=== PATIENT | female | born 1960 | race Caucasian/White ===

== ENCOUNTER → 2016-10-30 | Outpatient (REF) | payer BC | LOC: M SFHCWAGY 11:30 | PROVIDERS: ATTEND Nurse Practitioner Women's Health | DX: Z12.4 Encounter for screening for malignant neoplasm of cervix (principal) ==

== ENCOUNTER → 2016-10-30 | Outpatient (CLI) | payer BC ==
--- NOTE | 2016-10-30 12:13 | REPMRS ---
Patient History The patient states she had a clinical breast exam in 10/2016. Family history of prostate cancer in father at age 50 or over and breast cancer in mother under age 50. Benign cyst aspiration. Digital Woman Screen Mammo: October 30, 2016 - Exam #: [id number] Bilateral CC and MLO view(s) were taken. Technologist: Olamide Davison, Technologist Prior study comparison: March 06, 2015, digital woman screen mammo performed at [facility]. October 18, 2012, digital bilateral screening mammo, performed at [facility]. June 16, 2011, digital bilateral screening mammo, performed at [facility]. FINDINGS: There are scattered fibroglandular densities. There has been no change in the appearance of the mammogram from the prior studies. There is a mild amount of scattered fibroglandular density which is fairly symmetric. There is no interval development of dominant mass, architectural distortion, or clustered microcalcification suggestive of malignancy. ASSESSMENT: BI-RADS/ACR category 1 mammogram. Negative. Recommendation Routine screening mammogram in 1 year (for women over age 40). This mammogram was interpreted with the aid of an FDA-approved computer-aided dectection system. Electronically Signed By: Zackary Ga MD 10/30/16 2179
== END ==
LOC: M WHC 10:59
PROVIDERS: ATTEND Nurse Practitioner Women's Health
DX: Z12.31 Encounter for screening mammogram for malignant neoplasm of breast (principal)

== ENCOUNTER → 2016-11-04 | Outpatient (CLI) | payer BC ==
--- NOTE | 2016-11-04 13:40 | REP ---
Clinical: Dysmenorrhea. Technique: Transabdominal pelvic ultrasound followed by transvaginal examination for better evaluation of the endometrium and adnexa. Findings: Bladder is normal and measures 10.7 x 9.6 x 4.9 cm. Heterogeneous anteverted uterus measures 8.2 x 7.5 x 5.2 cm and appears deviated to the left miriam pelvis. The endometrial complex measures 6.2 mm thickness. There is a 5.5 cm right posterior subserosal fibroid. Bilateral ovaries are normal in appearance. Right ovary measures 2.3 x 1.0 x 2.4 cm. Left ovary measures 2.8 x 2.0 x 1.6 cm. No pelvic fluid or adnexal mass lesions. Impression: 5.5 cm posterior subserosal fibroid.
== END ==
LOC: M WHC 10:23
PROVIDERS: ATTEND Nurse Practitioner Women's Health
DX: N92.1 Excessive and frequent menstruation with irregular cycle (principal); D25.9 Leiomyoma of uterus, unspecified

== ENCOUNTER → 2017-10-28 | Outpatient (CLI) | payer BC | LOC: M WHC 10:01 | DX: Z12.31 Encounter for screening mammogram for malignant neoplasm of breast (principal); Z80.3 Family history of malignant neoplasm of breast | CPT/HCPCS: 77067 ==

== ENCOUNTER → 2017-10-28 | Outpatient (REF) | payer BC | LOC: M SFHCWAGY 10:15 | DX: Z12.4 Encounter for screening for malignant neoplasm of cervix (principal) | CPT/HCPCS: G0123 ==

== ENCOUNTER → 2018-03-04 | Outpatient (CLI) | payer BC ==
[~2018-03-04] MED LIST: PROHANCE 279.3MG/ML 15ML VIAL (A9576) As Ordered
== END ==
LOC: M RAD 11:56
DX: Z80.3 Family history of malignant neoplasm of breast (principal)

== ENCOUNTER → 2018-10-31 | Outpatient (REF) | payer BC ==
[2018-11-02 14:11] LABS: HPV HYBRID CAPTURE II Negative (Negative)
== END ==
LOC: M SFHCWAGY 10:48
PROVIDERS: ATTEND Nurse Practitioner Women's Health
DX: Z12.4 Encounter for screening for malignant neoplasm of cervix (principal)
CPT/HCPCS: 87624; G0123

== ENCOUNTER → 2018-11-08 | Outpatient (CLI) | payer BC ==
--- NOTE | 2018-11-08 13:23 | REP ---
Clinical: Abnormal liver function tests. Technique: Real time allen scale ultrasound examination using curved array transducer. Findings: There demonstrates multiple scattered cysts mostly measuring under 2 cm. However, a 4.7 x 4.7 x 3.6 cm simple appearing cyst is identified with in the posterior right lobe. No further hepatic lesions are identified by sonographic evaluation. The pancreas is limited evaluation but visualized portions appear normal. Gallbladder is unremarkable and without gallstones, wall thickening, or pericholecystic fluid. No biliary ductal dilatation is appreciated and the common bile duct measures 5.4 mm diameter. The right kidney is normal in reniform shape and echogenicity without hydronephrosis and measures 11.1 x 6.6 x 4.5 cm. Visualized portions of the abdominal aorta normal. No ascites. Impression: 1. Simple appearing hepatic cysts identified measuring up to 4.7 cm. Electronically Signed by Leonard Topete MD 11/08/2018 01:15 P
== END ==
LOC: M RAD 08:04
PROVIDERS: ATTEND Family Medicine
DX: R94.5 Abnormal results of liver function studies (principal); K76.89 Other specified diseases of liver

== ENCOUNTER → 2018-12-26 | Outpatient (REF) | payer BC | LOC: M LAB REF 19:01 | PROVIDERS: ATTEND Surgery | DX: L82.1 Other seborrheic keratosis (principal) ==

== ENCOUNTER → 2019-12-22 | Outpatient (CLI) | payer BC ==
--- NOTE | 2019-12-23 10:01 | REP ---
REASON FOR EXAM: Hearing deficit. There is slight echogenic material seen along the carotid arterial verduzco. RIGHT LEFT CCA systolic 105.8 cm/s 132.4cm/s CCA diastolic 33.7 cm/s 24.3 cm/s ICA systolic 69.2 cm/s 51.9 cm/s ICA diastolic 27.0 cm/s 19.7 cm/s ICA/CCA ratio 0.65 3.39 Analysis of the spectral waveforms shows no significant broadening. There is antegrade flow seen in both vertebral arteries. IMPRESSION: There is minimal plaque formation. According to the NASCET Consensus Criteria, there is less than 50% stenosis in both internal carotid arteries due to the minimal plaque formation/intimal thickening. Electronically Signed by Maco Luu DO 12/24/2019 08:30 A
== END ==
LOC: M RAD 12:47
PROVIDERS: ATTEND Family Medicine
DX: Z86.79 Personal history of other diseases of the circulatory system (principal)

== ENCOUNTER → 2019-12-26 | Outpatient (REF) | payer BC | LOC: M SFHCWAGY 14:56 | PROVIDERS: ATTEND Nurse Practitioner Women's Health | DX: Z12.4 Encounter for screening for malignant neoplasm of cervix (principal); N85.8 Other specified noninflammatory disorders of uterus ==

== ENCOUNTER → 2019-12-26 | Outpatient (CLI) | payer BC ==
--- NOTE | 2019-12-26 11:37 | REPMRS ---
Patient History The patient states she had a clinical breast exam in December 2019. Family history of prostate cancer at age 50 or over in father, breast cancer under age 50 and endometrial cancer under age 50 in mother. Benign cyst aspiration. No Hormone Replacement Therapy 3D TOMOSYNTHESIS WAS PERFORMED. [facility]%. VOLPARA DENSITY B. Digital Woman Screen Mammo: December 26, 2019 - Exam #: [id number] Bilateral CC and MLO view(s) were taken. Technologist: Julisa Mcleod, Technologist Prior study comparison: October 31, 2018, bilateral digital woman screen mammo performed at [facility]. October 28, 2017, digital woman screen mammo performed at [facility]. FINDINGS: There are scattered fibroglandular densities. There has been no change in the appearance of the mammogram from the prior studies. There is a mild amount of residual fibroglandular tissue which is fairly symmetric. There is no interval development of dominant mass, architectural distortion, or clustered microcalcification suggestive of malignancy. Assessment: BI-RADS/ACR category 1 mammogram. Negative Mammogram. Recommendation Routine screening mammogram in 1 year (for women over age 40). This mammogram was interpreted with the aid of an FDA-approved computer-aided dectection system. Electronically Signed By: Tom Cruz MD 12/26/19 [id number]
== END ==
LOC: M WHC 10:09
PROVIDERS: ATTEND Nurse Practitioner Women's Health
DX: R92.2 Inconclusive mammogram (principal); Z15.01 Genetic susceptibility to malignant neoplasm of breast; Z80.3 Family history of malignant neoplasm of breast

== ENCOUNTER → 2020-10-28 | Outpatient (CLI) | payer BC ==
[~2020-10-28] MED LIST changes: -PROHANCE 279.3MG/ML 15ML VIAL (A9576) As Ordered; +PROHANCE 279.3MG/ML 15ML VIAL As Ordered ONE
--- NOTE | 2020-10-28 14:54 | REP ---
INDICATION: GENETIC SUSP, HIGH RISK SCREENING. COMPARISON: MRI 03/04/2018, mammogram 12/26/2019. TECHNIQUE: Three Mei MRI imaging was performed with a dedicated breast coil. Axial, coronal, and sagittal T1 and T2 weighted scans were obtained with and without fat saturation in the usual fashion. The study includes dynamically acquired post gadolinium-enhanced imaging with image subtraction. Maximum intensity projection and multi planar reformation imaging is included as well. This study is interpreted with the aid of [employer], a [employer], an FDA approved computer aided detection (CAD) software program, on a dedicated breast MRI workstation. The gadolinium enhancement dose is 13 mL of intravenous ProHance. FINDINGS: Mild scattered symmetrical fibroglandular tissue is present. No significant cystic change is seen in either breast. There is no evidence of axillary adenopathy. There is mild background parenchymal enhancement. There is no suspicious enhancing mass or morphologic abnormality. Nonenhancing cystic structures again seen in the liver. IMPRESSION: BI-RADS category 1-bilateral breast MRI. No suspicious enhancing mass or morphologic abnormality. <Electronically signed by Tom Cruz > 10/28/20 [id number]
== END ==
LOC: M RAD 12:33
PROVIDERS: ATTEND Nurse Practitioner Women's Health
DX: Z12.31 Encounter for screening mammogram for malignant neoplasm of breast (principal); Z15.01 Genetic susceptibility to malignant neoplasm of breast; Z80.3 Family history of malignant neoplasm of breast
CPT/HCPCS: A9576; C8908

== ENCOUNTER → 2020-11-13 | Outpatient (REF) | payer BC | LOC: M SFHCWAGY 13:52 | PROVIDERS: ATTEND Nurse Practitioner Women's Health | DX: Z12.4 Encounter for screening for malignant neoplasm of cervix (principal); N88.8 Other specified noninflammatory disorders of cervix uteri ==

== ENCOUNTER → 2021-02-12 | Outpatient (CLI) | payer BC ==
--- NOTE | 2021-02-12 13:08 | REPMRS ---
Patient History The patient states she had a clinical breast exam in November 2020. Family history of prostate cancer at age 50 or over in father, breast cancer under age 50 and endometrial cancer under age 50 in mother. Benign cyst aspiration. No Hormone Replacement Therapy No breast complaints today Patient signed the MRS sheet 1st covid vaccine 11/14/20-left arm-Pfizer 2nd covid vaccine 12/05/20-left arm Priors on PACS Patient Identification Verified Digital Woman Screen Mammo: February 12, 2021 - Exam #: [id number] Bilateral CC and MLO view(s) were taken. Technologist: Julisa Mcleod, Technologist Prior study comparison: December 26, 2019, bilateral digital woman screen mammo performed at [facility]. October 31, 2018, bilateral digital woman screen mammo performed at [facility]. October 28, 2017, digital woman screen mammo performed at [facility]. FINDINGS: There are scattered fibroglandular densities. The Volpara volumetric breast density category is:B. There has been no change in the appearance of the mammogram from the prior studies. There is a mild amount of scattered fibroglandular density which is fairly symmetric. There is no interval development of dominant mass, architectural distortion, or grouped microcalcification suggestive of malignancy. 3-D tomosynthesis shows no additional findings. Assessment: BI-RADS/ACR category 1 mammogram. Negative Mammogram. Recommendation Routine screening mammogram of both breasts in 1 year (for women over age 40). This patient's [facility] Lifetime Breast Cancer Risk is estimated at 14.4 %. This mammogram was interpreted with the aid of an FDA-approved computer-aided dectection system. Electronically Signed By: Zackary Ga MD 02/12/21 [id number]
== END ==
LOC: M WHC 11:34
PROVIDERS: ATTEND Nurse Practitioner Women's Health
DX: Z12.31 Encounter for screening mammogram for malignant neoplasm of breast (principal); Z80.3 Family history of malignant neoplasm of breast; Z15.01 Genetic susceptibility to malignant neoplasm of breast; Z80.42 Family history of malignant neoplasm of prostate; Z80.49 Family history of malignant neoplasm of other genital organs

== ENCOUNTER → 2022-02-19 | Outpatient (CLI) | payer BC, OTHER, SELFPAY | LOC: M WHC 09:59 | PROVIDERS: ATTEND Nurse Practitioner Family | DX: Z12.31 Encounter for screening mammogram for malignant neoplasm of breast (principal) ==

== ENCOUNTER → 2022-02-19 | Outpatient (REF) | payer OTHER | LOC: M SFHCWAGY 12:54 | PROVIDERS: ATTEND Nurse Practitioner Family | DX: Z12.4 Encounter for screening for malignant neoplasm of cervix (principal) | CPT/HCPCS: 87624; G0123 ==

== ENCOUNTER → 2022-03-11 | Outpatient (CLI) | payer OTHER | LOC: M SOG 11:02 | PROVIDERS: ATTEND Orthopaedic Surgery | DX: M25.532 Pain in left wrist (principal) ==

== ENCOUNTER → 2023-05-03 | Outpatient (REF) | payer SELFPAY, OTHER | LOC: M SFHCWAGY 09:02 | PROVIDERS: ATTEND Nurse Practitioner Family | DX: Z12.4 Encounter for screening for malignant neoplasm of cervix (principal) ==

== ENCOUNTER → 2023-05-03 | Outpatient (CLI) | payer SELFPAY | LOC: M WHC 10:54 | PROVIDERS: ATTEND Nurse Practitioner Family | DX: Z12.31 Encounter for screening mammogram for malignant neoplasm of breast (principal); R92.323 Mammographic fibroglandular density, bilateral breasts ==

== ENCOUNTER → 2023-11-09 | Outpatient (CLI) | payer OTHER ==
[~2023-11-09] MED LIST changes: -PROHANCE 279.3MG/ML 15ML VIAL As Ordered ONE; +PROHANCE 279.3MG/ML 15ML VIAL ONE
== END ==
LOC: M PLAIMG 10:13
PROVIDERS: ATTEND Nurse Practitioner Family
DX: Z15.89 Genetic susceptibility to other disease (principal); Z80.3 Family history of malignant neoplasm of breast; Z91.89 Other specified personal risk factors, not elsewhere classified
CPT/HCPCS: 77049; A9576

== ENCOUNTER → 2025-01-18 | Outpatient (CLI) | payer OTHER | LOC: M WHC 07:33 | PROVIDERS: ATTEND Nurse Practitioner Family | DX: Z12.31 Encounter for screening mammogram for malignant neoplasm of breast (principal); R92.323 Mammographic fibroglandular density, bilateral breasts ==

== ENCOUNTER → 2025-01-18 | Outpatient (REF) | payer OTHER ==
[2025-01-20 12:27] LABS: HPV APTIMA Not Detected (Not Detected)
== END ==
LOC: M SFHCWAGY 11:33
PROVIDERS: ATTEND Nurse Practitioner Family
DX: Z12.4 Encounter for screening for malignant neoplasm of cervix (principal)